=== PATIENT | male | born 1995 | race Caucasian/White ===

== ENCOUNTER 2016-07-31 00:46 | Emergency (ER) | payer BC, MEDICAID ==
[~2016-07-31] VITALS: Ht 182.9 cm; Wt 65.8 kg
[2016-07-31 01:28] LABS: BASOPHILS % (AUTO) 0 % (0-10); EOSINOPHILS # (AUTO) 0.1 10^3/uL (0.0-0.3); EOSINOPHILS % (AUTO) 1 % (0-10); LYMPHOCYTES % (AUTO) 33 % (12-44); MEAN CORPUSCULAR HEMOGLOBIN 31 PG (25-34); MEAN CORPUSCULAR HGB CONC 34 G/DL (32-36); MEAN CORPUSCULAR VOLUME 92 FL (80-99); MEAN PLATELET VOLUME 9.4 FL (7.4-10.4); MONOCYTES # (AUTO) 0.8 X 10^3 (0.0-1.0); MONOCYTES % (AUTO) 8 % (0-12); NEUTROPHILS # (AUTO) 5.1 X 10^3 (1.8-7.8); NEUTROPHILS % (AUTO) 57 % (42-75); PLATELET COUNT 276 10^3/uL (130-400); RED BLOOD COUNT 4.75 10^6/uL (4.35-5.85); RED CELL DISTRIBUTION WIDTH 13.1 % (10.0-14.5)
--- NOTE | 2016-07-31 01:40 | ED GI ---
General Chief Complaint: Abdominal/GI Problems Stated Complaint: AB LOWER BACK PAIN Source of Information: Patient History of Present Illness Time Seen By Provider: 01:20 Initial Comments C/O EPIGASTRIC ABDOMINAL AND MID BACK PAIN X 1 WEEK HAS ALSO HAD NAUSEA/VOMITING/DIARRHEA X 1 WEEK,BUT NO VOMITING OR DIARRHEA FOR A FEW DAYS, AND HAS BEEN EATING AND DRINKING WELL NO FEVER NO URINARY SYMPTOMS NO HISTORY OF SIMILAR \NO SICK CONTACTS OR SUSPICIOUS FOODS STATES HE THINKS IT IS FROM HIS DRINKING--DRINKS 18 PACK OF BEER EVERY DAY, PLUS HARD LIQUOR--WHISKEY AND VODKA, AT TIMES WENT TO [facility] ON Sunday07/26/16 FOR THIS PROBLEM AND WAS TOLD HE HAD DECREASED RENAL FUNCTION AND WAS GIVEN RX FOR PREVACID AND ZOFRAN STATES ZOFRAN HELPS WITH NAUSEA STATES HE HAS NOT HAD ANY ALCOHOL SINCE SUNDAY PCP: [facility], ALSO SEES DR. JENSEN IN [place] Allergies and Home Medications Allergies Coded Allergies: No Known Drug Allergies (Unverified , 07/31/16) Home Medications Sucralfate 1 Gm/10 Ml Oral.susp #400 1 GM PO QID AC AND HS Prescribed by: JAM FLORES on 07/31/16 0223 Review of Systems Constitutional: no symptoms reported Respiratory: No Symptoms Reported Cardiovascular: No Symptoms Reported Gastrointestinal: See HPI Abdominal Pain Diarrhea NauseaDenies Poor Appetite, Denies Poor Fluid Intake, Vomiting Genitourinary: No Symptoms Reported Musculoskeletal: see HPI back pain Skin: no symptoms reported Psychiatric/Neurological: No Symptoms Reported Endocrine: No Symptoms Reported Hematologic/Lymphatic: No Symptoms Reported Past Xdxhgth-Tjvjwy-Beurgg Hx Patient Social History Alcohol Use: Regular Use (18 PACK A DAY, PLUS HARD LIQUOR AT TIMES--WHISKEY, VODKA) Recreational Drug Use: Yes (PT DENIES BUT TESTED + FOR THC 07/31/16) Smoking Status: Current Everyday Smoker (1 PPD) Type Used: Cigarettes Recent Foreign Travel: No Contact w/Someone Who Travel: No Surgeries HX Surgeries: Yes (BILATERAL KNEE SCOPES, I&D) Surgeries: Orthopedic Respiratory Hx Respiratory Disorders: No Cardiovascular Hx Cardiac Disorders: No Neurological Hx Neurological Disorders: No Reproductive System Hx Reproductive Disorders: No Genitourinary Hx Genitourinary Disorders: No Gastrointestinal Hx Gastrointestinal Disorders: No Musculoskeletal Hx Musculoskeletal Disorders: Yes (BILATERAL KNEE SCOPES) Endocrine Hx Endocrine Disorders: No HEENT HX ENT Disorders: No Cancer Hx Cancer: No Psychosocial Hx Psychiatric Problems: No Integumentary HX Skin/Integumentary Disorder: No Blood Transfusions Hx Blood Disorders: No Physical Exam Vital Signs VS - Last 72 Hours, by Label 07/31/16 07/31/16 01:09 02:28 Temp 98.0 Pulse 59 70 Resp 18 18 B/P 130/87 Pulse Ox 100 99 O2 Delivery Room Air Room Air Capillary Refill : General Appearance: WD/WN no apparent distress other (WALKS UPRIGHT AND MOVES QUICKLY WITHOUT DIFFICULTY. DOES NOT APPEAR TO BE IN ANY DISCOMFORT) thin HEENT: PERRL/EOMINo scleral icterus (R), No scleral icterus (L) Neck: normal inspection Respiratory: normal breath sounds no respiratory distress no accessory muscle use Cardiovascular: normal peripheral pulses regular rate, rhythm no edema no JVD no murmur Gastrointestinal: normal bowel sounds soft no organomegaly no pulsatile massNo distended, No guarding, No rebound, tenderness (MILD EPIGASTRIC TENDERNESS)No hernia, No mass Extremities: normal inspection Back: normal inspection no CVA tenderness no vertebral tenderness other (NO BACK TENDERNESS) 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 no motor/sensory deficits alert normal mood/affect oriented x 3 Skin: normal color warm/dryNo rash Progress/Results/Core Measures Results/Orders Lab Results Laboratory Tests Test 07/31/16 01:17 07/31/16 01:55 Range/Units Alanine Aminotransferase (ALT/SGPT) 27 0-55 U/L Albumin 4.4 3.2-4.5 G/DL Alkaline Phosphatase 51 40-136 U/L Amylase Level 49 25-125 U/L Anion Gap 8 5-14 MMOL/L Aspartate Amino Transf (AST/SGOT) 29 5-34 U/L BUN/Creatinine Ratio 14 Basophils # (Auto) 0.0 0.0-0.1 10^3/uL Basophils (%) (Auto) 0 0-10 % Blood Urea Nitrogen 12 7-18 MG/DL Calcium Level 9.2 8.5-10.1 MG/DL Carbon Dioxide Level 25 21-32 MMOL/L Chloride Level 105 98-107 MMOL/L Creatinine 0.84 0.60-1.30 MG/DL Eosinophils # (Auto) 0.1 0.0-0.3 10^3/uL Eosinophils (%) (Auto) 1 0-10 % Estimat Glomerular Filtration Rate > 60 Glucose Level 95 70-105 MG/DL Hematocrit 44 40-54 % Hemoglobin 14.9 13.3-17.7 G/DL Lipase 14 8-78 U/L Lymphocytes # (Auto) 3.0 1.0-4.0 X 10^3 Lymphocytes (%) (Auto) 33 12-44 % Mean Corpuscular Hemoglobin 31 25-34 PG Mean Corpuscular Hemoglobin Concent 34 32-36 G/DL Mean Corpuscular Volume 92 80-99 FL Mean Platelet Volume 9.4 7.4-10.4 FL Monocytes # (Auto) 0.8 0.0-1.0 X 10^3 Monocytes (%) (Auto) 8 0-12 % Neutrophils # (Auto) 5.1 1.8-7.8 X 10^3 Neutrophils (%) (Auto) 57 42-75 % Platelet Count 276 130-400 10^3/uL Potassium Level 4.9 3.6-5.0 MMOL/L Red Blood Count 4.75 4.35-5.85 10^6/uL Red Cell Distribution Width 13.1 10.0-14.5 % Serum Alcohol < 10 <10 MG/DL Sodium Level 138 135-145 MMOL/L Total Bilirubin 0.3 0.1-1.0 MG/DL Total Protein 7.0 6.4-8.2 G/DL White Blood Count 9.0 4.3-11.0 10^3/uL Ur Tricyclic Antidepressants Screen NEGATIVE NEGATIVE Urine Amphetamines Screen NEGATIVE NEGATIVE Urine Bacteria NEGATIVE /HPF Urine Barbiturates Screen NEGATIVE NEGATIVE Urine Benzodiazepines Screen NEGATIVE NEGATIVE Urine Bilirubin NEGATIVE NEGATIVE Urine Cannabinoids Screen POSITIVE H NEGATIVE Urine Casts NONE /LPF Urine Clarity CLEAR Urine Cocaine Screen NEGATIVE NEGATIVE Urine Color YELLOW Urine Crystals NONE /LPF Urine Culture Indicated NO Urine Glucose (UA) NEGATIVE NEGATIVE Urine Ketones NEGATIVE NEGATIVE Urine Leukocyte Esterase NEGATIVE NEGATIVE Urine Methadone Screen NEGATIVE NEGATIVE Urine Methamphetamines Screen NEGATIVE NEGATIVE Urine Mucus NEGATIVE /LPF Urine Nitrite NEGATIVE NEGATIVE Urine Opiates Screen NEGATIVE NEGATIVE Urine Oxycodone Screen NEGATIVE NEGATIVE Urine Phencyclidine Screen NEGATIVE NEGATIVE Urine Propoxyphene Screen NEGATIVE NEGATIVE Urine Protein NEGATIVE NEGATIVE Urine RBC NONE /HPF Urine RBC (Auto) NEGATIVE NEGATIVE Urine Specific Haynes 1.020 1.016-1.022 Urine Squamous Epithelial Cells RARE /HPF Urine Urobilinogen NORMAL NORMAL MG/DL Urine WBC NONE /HPF Urine pH 6 5-9 My Orders Orders-JAM FLORES DO Ua Culture If Indicated (07/31/16 01:21) Saline Lock/Iv-Start (07/31/16 01:23) Alcohol (07/31/16 01:23) Amylase (07/31/16 01:23) Cbc With Automated Diff (07/31/16 01:23) Comprehensive Metabolic Panel (07/31/16 01:23) Drug Screen Stat (Urine) (07/31/16 01:23) Lipase (07/31/16 01:23) Antacid Suspension (Mylanta Suspension (07/31/16 02:00) Lidocaine 2% Viscous 15 Ml (Xylocaine Vi (07/31/16 02:00) Medications Given in ED Current Medications Medications Dose Ordered Sig/Juan Route Start Time Stop Time Status Last Admin Dose Admin Al Hydrox/Mg Hydrox/Simethicone 30 ml ONCE ONCE PO 07/31/16 02:00 07/31/16 02:01 DC 07/31/16 02:05 30 ML Lidocaine HCl 5 ml ONCE ONCE PO 07/31/16 02:00 07/31/16 02:01 DC 07/31/16 02:05 5 ML Vital Signs/I&O Vital Sign - Last 12Hours 07/31/16 07/31/16 01:09 02:28 Temp 98.0 Pulse 59 70 Resp 18 18 B/P 130/87 Pulse Ox 100 99 O2 Delivery Room Air Room Air Progress Note : Progress Note SYMPTOMS IMPROVED WITH GI COCKTAIL Departure Impression Impression: Primary Impression: Epigastric abdominal pain Additional Impressions: SUSPECTED ALCOHOLIC GASTRITIS Alcohol abuse Disposition: 01 HOME, SELF-CARE Condition: Stable Departure-Patient Inst. Referrals: NO,LOCAL PHYSICIAN (PCP) Primary Care Physician [facility] Patient Instructions: ALCOHOL AND SUBSTANCE ABUSE, Gastritis (DC) Add. Discharge Instructions: NO ALCOHOL LOTS OF CLEAR LIQUIDS--NO COFFEE, POP OR TEA BRATS DIET--BANANAS, RICE, APPLESAUCE, TOAST, SALTINES FOLLOW UP WITH [facility] THIS WEEK FOR FURTHER CARE All discharge instructions reviewed with patient and/or family. Voiced understanding. Scripts Sucralfate (Carafate)1 Gm/10 Ml Oral.susp1 Gm PO QID AC AND HS #400 ML Prov:JAM FLORES DO 07/31/16 Work/School Note: Work Release Form Date Seen in the Emergency Department: Jul 31, 2016 JAM FLORES DO Jul 31, 2016 01:40
[2016-07-31 01:48] LABS: ALANINE AMINOTRANSFERASE 27 U/L (0-55); ALBUMIN 4.4 G/DL (3.2-4.5); ALCOHOL < 10 MG/DL (<10); AMYLASE 49 U/L (25-125); ANION GAP 8 MMOL/L (5-14); ASPARTATE AMINO TRANSFERASE 29 U/L (5-34); BILIRUBIN,TOTAL 0.3 MG/DL (0.1-1.0); BLOOD UREA NITROGEN 12 MG/DL (7-18); BUN/CREATININE RATIO 14; CALCIUM 9.2 MG/DL (8.5-10.1); CARBON DIOXIDE 25 MMOL/L (21-32); CHLORIDE 105 MMOL/L (98-107); CREATININE SERUM 0.84 MG/DL (0.60-1.30); GFR ESTIMATED > 60; GLUCOSE 95 MG/DL (70-105); LIPASE 14 U/L (8-78); POTASSIUM 4.9 MMOL/L (3.6-5.0); SODIUM 138 MMOL/L (135-145)
[2016-07-31] MEDS ORDERED: LIDOCAINE 2% VISCOUS 15 ML UDC PO ONE (02:00)
[2016-07-31] MEDS ORDERED: ANTACID SUSP 30 ML UDC (MYLANTA) PO ONE (02:00)
[2016-07-31 02:02] LABS: BILIRUBIN,URINE NEGATIVE (NEGATIVE); KETONES,URINE NEGATIVE (NEGATIVE); LEUKOCYTE ESTERASE ,URINE NEGATIVE (NEGATIVE); NITRITE,URINE NEGATIVE (NEGATIVE); PH,URINE 6 (5-9); PROTEIN,URINE NEGATIVE (NEGATIVE); UROBILINOGEN,URINE NORMAL (NORMAL)
[2016-07-31 02:14] LABS: SQUAMOUS EPITHELIAL CELL,UR RARE /HPF
[2016-07-31] MEDS ORDERED: SUCR1ORA5 PO (02:23)
[2016-07-31 02:28] VITALS: BP 128/78
== END 2016-07-31 02:28 | disposition home or self-care (01) ==
LOC: EDUNIT# 00:46 → ER 00:52
DX: R10.13 Epigastric pain (principal); F10.10 Alcohol abuse, uncomplicated; F17.210 Nicotine dependence, cigarettes, uncomplicated; R11.2 Nausea with vomiting, unspecified; R19.7 Diarrhea, unspecified
CPT/HCPCS: 36415; 80053; 80306; 80320; 81000; 82150; 83690; 85025

== ENCOUNTER 2018-06-25 08:54 | Emergency (ER) | payer BC, OTHER ==
[~2018-06-25] VITALS: Ht 185.4 cm; Wt 65.8 kg
[~2018-06-25 08:54] MED LIST: SUCR1ORA5 PO
--- OUTSIDE RECORDS SUMMARY | 2018-06-25 08:58 | XMS REPORT ---
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 Name Role Phone SAMIR ENNIS Unavailable PROBLEMS Type Condition ICD9-CM Code DGC81-DL Code Onset Dates Condition Status SNOMED Code Problem Cigarette nicotine dependence without complication F17.210 Active 58099694 ALLERGIES Substance Reaction Event Type Date Status Amoxicillin Unknown Drug Allergy Jul, Active SOCIAL HISTORY No smoking Hx information available PLAN OF CARE VITAL SIGNS Weight 145 lbs 2016-07-26 Temperature 98.1 degrees Fahrenheit 2016-07-26 Heart Rate 102 bpm 2016-07-26 Respiratory Rate 16 2016-07-26 Blood pressure systolic 110 mmHg 2016-07-26 Blood pressure diastolic 70 mmHg 2016-07-26 MEDICATIONS Medication Instructions Dosage Frequency Start Date End Date Duration Status Ondansetron HCl 4 MG Orally 3 times a day 1 tablets 8h Jul, 10 days Active RESULTS Name Result Date Reference Range H PYLORI (IN HOUSE) 2016-07-26 H. PYLORI Control + Lot # [id number] Exp date 04/2017 CBC 2016-07-26 WBC 10.7 3.4-10.8 RBC 4.81 4.14-5.80 Hemoglobin 14.8 12.6-17.7 Hematocrit 43.1 37.5-51.0 MCV 90 79-97 MCH 30.8 26.6-33.0 MCHC 34.3 31.5-35.7 RDW 14.0 12.3-15.4 Platelets 288 150-379 Neutrophils 71 Lymphs 22 Monocytes 6 Eos 1 Basos 0 Immature Cells Neutrophils (Absolute) 7.5 1.4-7.0 Lymphs (Absolute) 2.3 0.7-3.1 Monocytes(Absolute) 0.7 0.1-0.9 Eos (Absolute) 0.1 0.0-0.4 Baso (Absolute) 0.0 0.0-0.2 Immature Granulocytes 0 Immature Grans (Abs) 0.0 0.0-0.1 NRBC Hematology Comments: CMP 2016-07-26 Glucose, Serum 81 65-99 BUN 16 6-20 Creatinine, Serum 0.73 0.76-1.27 eGFR If NonAfricn Am 134 >59 eGFR If Africn Am 154 >59 BUN/Creatinine Ratio 22 8-19 Sodium, Serum 141 134-144 Potassium, Serum 4.5 3.5-5.2 Chloride, Serum 102 96-106 Carbon Dioxide, Total 25 18-29 Calcium, Serum 9.5 8.7-10.2 Protein, Total, Serum 7.1 6.0-8.5 Albumin, Serum 4.2 3.5-5.5 Globulin, Total 2.9 1.5-4.5 A/G Ratio 1.4 1.1-2.5 Bilirubin, Total 0.3 0.0-1.2 Alkaline Phosphatase, S 52 39-117 AST (SGOT) 16 0-40 ALT (SGPT) 11 0-44 PROCEDURES Procedure Date Ordered Related Diagnosis Body Site IMMUNOASSAY,INFECTIOUS AGENT Jul 26, 2016 COMPLETE CBC W/AUTO DIFF WBC Jul 26, 2016 Office Visit, Est Pt., Level 3 Jul 26, 2016 COMPREHEN METABOLIC PANEL Jul 26, 2016 VENIPUNCT, ROUTINE* Jul 26, 2016 IMMUNIZATIONS No Known Immunizations
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
[2018-06-25] MEDS ORDERED: NAPR-1071 PO (11:14)
[2018-06-25] MEDS ORDERED: METH-313 PO (11:14)
[2018-06-25 11:19] VITALS: BP 126/54
== END 2018-06-25 11:19 | disposition home or self-care (01) ==
LOC: EDUNIT# 08:54 → ER 08:55
DX: S16.1XXA Strain of muscle, fascia and tendon at neck level, initial encounter (principal); R40.2142 Coma scale, eyes open, spontaneous, at arrival to emergency department; R40.2252 Coma scale, best verbal response, oriented, at arrival to emergency department; R40.2362 Coma scale, best motor response, obeys commands, at arrival to emergency department; F17.210 Nicotine dependence, cigarettes, uncomplicated; Z88.0 Allergy status to penicillin; V49.40XA Driver injured in collision with unspecified motor vehicles in traffic accident, initial encounter; Y92.410 Unspecified street and highway as the place of occurrence of the external cause
CPT/HCPCS: 70450; 72125; 72128